=== PATIENT | female | born 1995 | race American Indian/Alaskan Native ===

== ENCOUNTER 2017-03-15 15:50 | Inpatient (IN) | payer SELFPAY ==
[2017-03-15 17:03] LABS: Hematocrit 37.7 % (30.3-42.9); Hemoglobin 12.6 gm/dl (10.1-14.3); Mean Corpuscular HGB Conc 33 % (30-34); Mean Corpuscular Hemoglobin 29 pg (28-32); Mean Corpuscular Volume 88 fl (79-97); Platelet Count 200 K/mm3 (140-440); Red Blood Count 4.28 M/mm3 (3.65-5.03); Red Cell Distribution Width 13.6 % (13.2-15.2); White Blood Count 12.5 K/mm3 (4.5-11.0)
[2017-03-15 17:17] LABS: INR 0.95 (0.87-1.13)
[2017-03-15 17:20] LABS: Anion Gap 22 mmol/L; BUN/Creatinine Ratio 22.85; Blood Urea Nitrogen 16 mg/dL (7-17); Calcium 9.6 mg/dL (8.4-10.2); Carbon Dioxide 22 mmol/L (22-30); Glucose 76 mg/dL (65-100); Potassium 3.9 mmol/L (3.6-5.0); Sodium 135 mmol/L (137-145)
--- NOTE | 2017-03-15 18:41 | Cat Scan Report ---
FINAL REPORT EXAM: CT HEAD/BRAIN WO CON HISTORY: Syncope TECHNIQUE: CT was performed from the foramen magnum through the vertex in the axial plane without the use of intravenous contrast. PRIORS: None. FINDINGS: The go/white matter attenuation pattern is normal. There is no mass lesion or mass effect. There are no abnormal extra-axial fluid collections. There is no evidence of acute intracranial hemorrhage or infarct. The ventricles are of normal size and configuration. The skull and orbits are unremarkable. The visualized paranasal sinuses are clear. IMPRESSION: Normal CT of the head.
[2017-03-15] MEDS ORDERED: TYLENOL PO ONE (18:58)
[2017-03-15] MEDS ORDERED: TYLENOL ONE (19:03)
[2017-03-15] MEDS ORDERED: NACL 0.9% 1000 ML 1,000 ML IV ONE (22:41)
--- NOTE | 2017-03-15 23:06 | Emergency Department Report ---
<COLLIN GUZMAN - Last Filed: 03/15/17 23:56> ED Dizziness HPI - General Chief Complaint: Syncope Stated Complaint: SYNCOPE/SEZIURE AT MALL Time Seen by Provider: 03/15/17 22:38 - Related Data Previous Rx's Medication Instructions Recorded Last Taken Type Loratadine [Claritin] 10 mg PO DAILY #30 tablet 03/23/14 Unknown Rx predniSONE [Deltasone] 40 mg PO QDAY #10 tab 03/23/14 Unknown Rx Allergies Allergy/AdvReac Type Severity Reaction Status Date / Time No Known Allergies Allergy Verified 03/15/17 19:03 ED Review of Systems ROS: Stated complaint: SYNCOPE/SEZIURE AT MALL Other details as noted in HPI ED Past Medical Hx - Medications Home Medications: Home Medications Medication Instructions Recorded Confirmed Last Taken Type Loratadine [Claritin] 10 mg PO DAILY #30 tablet 03/23/14 Unknown Rx predniSONE [Deltasone] 40 mg PO QDAY #10 tab 03/23/14 Unknown Rx ED Course Vital Signs 03/15/17 03/15/17 03/15/17 16:02 19:01 21:03 Temperature 98.2 F Pulse Rate 92 H 66 Respiratory 16 16 18 Rate Blood Pressure 107/80 Blood Pressure 124/76 [Right] O2 Sat by Pulse 100 100 Oximetry - Consultations Consultation #1: 03/15/17 23:[address] 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 Recommends admission for observation. We'll consult ED Medical Decision Making - Lab Data Result diagrams: 03/15/17 16:18 03/15/17 16:18 Critical care attestation.: If time is entered above; I have spent that time in minutes in the direct care of this critically ill patient, excluding procedure time. ED Disposition Clinical Impression: Syncope, near, Wenckebach block, Marijuana abuse Syncope Qualifiers: Syncope type: unspecified Qualified Code(s): R55 - Syncope and collapse Disposition: -09 OP ADMIT IP TO THIS HOSP Is pt being admited?: Yes Condition: Good Time of Disposition: 23:57 (Dr boland/hosp) <PAWEL DICKERSON - Last Filed: 03/16/17 00:12> ED Dizziness HPI - General Source: patient Mode of arrival: Ambulatory Limitations: No Limitations - History of Present Illness Initial Comments: pt endorses smoking marijuana last night did not eat anything today and remembers being in line at food court in mall and got dizziness and fell to floor impacting forehead, pt advises "my uncle was standing over me hold pressure to my head until the ambulance came. pt not sure if she experienced syncopal episode or not, as "They say I passed out," pt denies dizziness no lightheadedness no n/v no cp no sob pt is a/o x 3 ambulatory gait steady at this time, complaint of left forehead laceration, bleeding controlled MD Complaint: dizziness, other (syncope) Onset/Timin -: hour(s) Timing: sudden onset Description: lightheadedness History of Same: No History of Trauma: No Severity: moderate Improves With: rehydration, rest Worsens With: nothing Associated Symptoms: syncope. denies: ataxia, chest pain, confusion, cough, diaphoresis, loss of appetite, malaise, rash, seizure, shortness of breath, weakness ED Review of Systems Constitutional: denies: chills, fever Eyes: denies: eye pain, eye discharge, vision change ENT: denies: ear pain, throat pain Respiratory: denies: cough, shortness of breath, wheezing Cardiovascular: denies: chest pain, palpitations, dyspnea on exertion, edema, paroxysmal nocturnal dyspnea Endocrine: no symptoms reported Gastrointestinal: denies: abdominal pain, nausea, diarrhea Genitourinary: denies: urgency, dysuria, discharge Musculoskeletal: denies: back pain, joint swelling, arthralgia Skin: denies: rash, lesions Neurological: denies: headache, weakness, numbness, paresthesias, confusion, abnormal gait, vertigo Psychiatric: denies: anxiety, depression Hematological/Lymphatic: denies: easy bleeding, easy bruising ED Past Medical Hx - Past Medical History Previous Medical History?: No - Surgical History Past Surgical History?: No - Social History Smoking Status: Never Smoker Substance Use Type: Marijuana ED Physical Exam - General Limitations: No Limitations General appearance: alert, in no apparent distress - Head Head exam: Present: normocephalic, other (left eyebrow laceration less than 1 cm no bleeding minimal swelling no deformity no crepitus no stepoff ) - Eye Eye exam: Present: normal appearance, PERRL, EOMI Pupils: Present: normal accommodation - ENT ENT exam: Present: mucous membranes moist - Neck Neck exam: Present: normal inspection, full ROM. Absent: lymphadenopathy, thyromegaly - Respiratory Respiratory exam: Present: normal lung sounds bilaterally. Absent: respiratory distress, wheezes, stridor - Cardiovascular Cardiovascular Exam: Present: regular rate, normal heart sounds. Absent: systolic murmur, diastolic murmur, rubs, gallop - GI/Abdominal GI/Abdominal exam: Present: soft, normal bowel sounds - Rectal Rectal exam: Present: deferred - Extremities Exam Extremities exam: Present: normal inspection, full ROM, normal capillary refill. Absent: tenderness, pedal edema, joint swelling, calf tenderness - Back Exam Back exam: Present: normal inspection, full ROM. Absent: tenderness, CVA tenderness (R), CVA tenderness (L), muscle spasm, paraspinal tenderness, vertebral tenderness, rash noted - Neurological Exam Neurological exam: Present: alert, oriented X3, CN II-XII intact, normal gait, reflexes normal - Expanded Neurological Exam Expanded Patient oriented to: Present: person, place, time Speech: Present: fluid speech Cranial nerves: EOM's Intact: Normal, Gag Reflex: Normal, Tongue Deviation: Normal, Nystagmus: Normal, Facial Sensation: Normal Cerebellar function: Finger to Nose: Normal, Heel to Gamez: Normal, Romberg: Normal Upper motor neuron: Doe Neglect: Normal, Pronator Drift: Normal, Babinski Sign : Normal, Sensory Extinction: Normal Sensory exam: Upper Extremity Light Touch: Normal, Upper Extremity Pin Prick: Normal, Upper Extremity Temperature: Normal, UE 2 Point Discrimination: Normal, Lower Extremity Light Touch: Normal, Lower Extremity Pin Prick: Normal, Lower Extremity Temperature: Normal, LE 2 Point Discrimination: Normal Motor strength exam: RUE: 5, LUE: 5, RLE: 5, LLE: 5 DTR: bicep (R): 2+, bicep (L): 2+, tricep (R): 2+, tricep (L): 2+, knee (R): 2+ , knee (L): 2+, ankle (R): 2+, ankle (L): 2+ Best Eye Response ([place]): (4) open spontaneously Best Motor Response ([place]): (6) obeys commands Best Verbal Response ([place]): (5) oriented Yoon Total: 15 - Psychiatric Psychiatric exam: Present: normal affect, normal mood - Skin Skin exam: Present: warm, dry, intact, normal color. Absent: rash - Laceration /Wound Repair Left Face Wound Location: face (left eyebrow) Wound Length (cm): 1 Wound's Depth, Shape: linear Wound Explored: clean Irrigated w/ Saline (ccs): 30 Betadine Prep?: Yes Anesthesia: Lidocaine w/ Epi Volume Anesthetic (ccs): 1 Wound Debrided: minimal Wound Repaired With: sutures Suture Size/Type: 6:0, proline Number of Sutures: 4 Layer Closure?: No Sterile Dressing Applied?: Yes Progress: left eyebrow laceration less than 1 cm bleeding control anesthesia wih 1% lidocaine with epi, 2cc, wound cleaned with betadine solution, irrigated wtih 30 sterile ns, closed with 6/0 prolyne x 4 sutures pt given wound care instructions pt verbalized understanding of same, all bleeding controlled ED Medical Decision Making - Lab Data Result diagrams: 03/15/17 16:18 03/15/17 16:18 Laboratory Tests 03/15/17 03/15/17 03/15/17 16:18 16:18 16:18 WBC RBC Hgb Hct MCV MCH MCHC RDW Plt Count PT 13.2 INR 0.95 Sodium 135 L Potassium 3.9 Chloride 95.0 L Carbon Dioxide 22 Anion Gap 22 BUN 16 Creatinine 0.7 Estimated GFR > 60 BUN/Creatinine Ratio 22.85 Glucose 76 Calcium 9.6 Magnesium 2.00 HCG, Qual Negative 03/15/17 16:18 WBC 12.5 H RBC 4.28 Hgb 12.6 Hct 37.7 MCV 88 MCH 29 MCHC 33 RDW 13.6 Plt Count 200 PT INR Sodium Potassium Chloride Carbon Dioxide Anion Gap BUN Creatinine Estimated GFR BUN/Creatinine Ratio Glucose Calcium Magnesium HCG, Qual - EKG Data -: EKG Interpreted by Me (Dr. Guzman, Second degree AV block manjit Reyes) Rate: normal (manjit ) - EKG Data When compared to previous EKG there are: previous EKG unavailable, other (no previous ekg available , ) - Radiology Data Radiology results: image reviewed - Medical Decision Making pt endorses smoking marijuana last night did not eat anything today and remembers being inline at food court in mall and got dizziness and fell to floor impacting forehead, pt advises "my uncle was standing over me hold pressure to my head until the ambulance came. pt unsure of syncope or not as she remembers impacting floor and uncle hold pressure until ems arrived, "They say I passed out," pt denies dizziness no lightheadedness no n/v no cp no sob pt is a/o x 3 ambulatory gait steady at this time, complaint of left forehead laceration, bleeding controlled , wound closed see procedure note, exam at this time patient is a/o x 3 appears nontoxic pt tolerating po intake eat dinner at bedside without n/v pt laceration closed as noted in procedure not there is minimal swelling ent: normal tms clear no erythema no blood nose: patent no bleed no obstruction, pharynx: no erythema no exudate no lesions airway is patent, there are no other or distracting injury , neuro intact CN: II-XII grossly intact, lungs clear bilat no wheezing, cv: s1 and s2 no MRG, abd soft nontender , no back pain, no , no dizziness lightheadedness no cp no sob, ct head: normal , labs noted however pt refuses IVFs, and EKG at this time. 2315: pt now agree with EKG : same completed with note 2nd degree AV Block Manjit I, this new finding for this patient, ED attending consulted recommendation admit to hospitalist, cardiology consult, same completed at this time, Cardiac enzymes and cxr ordered, pt care hand off to hospitalist completed. mother and patient agree with treatment plan, Adm to hospitalist, dx : syncope , ekg changes, abnormal ekg. ED Disposition Is pt being admited?: Yes Does the pt Need Aspirin: No Time of Disposition: 00:12
[2017-03-15 23:59] LABS: Urine Drugs of Abuse Note Disclamer
[2017-03-16 00:26] LABS: Bilirubin,Urine NEG (Negative); Blood,Urine NEG (Negative); Ketones,Urine NEG (Negative); Leukocyte Esterase,Urine NEG (Negative); Mucus,Urine FEW /HPF; Nitrite,Urine NEG (Negative); Protein,Urine <15 mg/dL mg/dL (Negative); Urobilinogen,Urine < 2.0 mg/dL (<2.0)
[2017-03-16] MEDS ORDERED: NACL 0.9% 1000 ML 1,000 ML ONE (00:58)
--- NOTE | 2017-03-16 01:16 | XRay Report ---
FINAL REPORT PROCEDURE: XR CHEST ROUTINE 2V TECHNIQUE: PA and lateral chest radiographs were obtained. CPT 50921 HISTORY: syncope COMPARISON: No prior studies are available for comparison. FINDINGS: Heart: Normal. Mediastinum/Vessels: Normal. Lungs/Pleural space: Normal. Bony thorax: No acute osseous abnormality. Other: IMPRESSION: Normal examination.
[2017-03-16] MEDS ORDERED: MILK OF MAGNESIA PO PRN (02:32)
[2017-03-16] MEDS ORDERED: PERCOCET 5/325 PO PRN (02:32)
[2017-03-16] MEDS ORDERED: TYLENOL PO PRN (02:32)
[2017-03-16] MEDS ORDERED: AMBIEN PO PRN (02:32)
[2017-03-16] MEDS ORDERED: ZOFRAN IV PRN (02:32)
[2017-03-16] MEDS ORDERED: DILAUDID IV PRN (02:32)
[2017-03-16] MEDS ORDERED: DULCOLAX PR PRN (02:32)
--- NOTE | 2017-03-16 02:32 | History and Physical Report ---
History of Present Illness Date of examination: 03/16/17 Date of admission: 03/16/17 Chief complaint: Passed out at mall. History of present illness: History of Present Illness pt endorses smoking marijuana last night did not eat anything today and remembers being in line at food court in mall and got dizziness and fell to floor impacting forehead, pt advises "my uncle was standing over me hold pressure to my head until the ambulance came. pt not sure if she experienced syncopal episode or not, as "They say I passed out," pt denies dizziness no lightheadedness no n/v no cp no sob pt is a/o x 3 ambulatory gait steady at this time, complaint of left forehead laceration, bleeding controlled MD Complaint: dizziness, other (syncope) Onset/Timin -: hour(s) Timing: sudden onset Description: lightheadedness History of Same: No History of Trauma: No Severity: moderate Improves With: rehydration, rest Worsens With: nothing Associated Symptoms: syncope. denies: ataxia, chest pain, confusion, cough, diaphoresis, loss of appetite, malaise, rash, seizure, shortness of breath, weakness - Past Medical History Previous Medical History?: No - Surgical History Past Surgical History?: No - Social History Smoking Status: Never Smoker Substance Use Type: Marijuana Fam Hx No Htn or diabees Review of Systems Constitutional: denies: chills, fever Eyes: denies: eye pain, eye discharge, vision change ENT: denies: ear pain, throat pain Respiratory: denies: cough, shortness of breath, wheezing Cardiovascular: denies: chest pain, palpitations, dyspnea on exertion, edema, paroxysmal nocturnal dyspnea Endocrine: no symptoms reported Gastrointestinal: denies: abdominal pain, nausea, diarrhea Genitourinary: denies: urgency, dysuria, discharge Musculoskeletal: denies: back pain, joint swelling, arthralgia Skin: denies: rash, lesions Neurological: denies: headache, weakness, numbness, paresthesias, confusion, abnormal gait, vertigo Psychiatric: denies: anxiety, depression Hematological/Lymphatic: denies: easy bleeding, easy bruising Medications and Allergies Allergies Allergy/AdvReac Type Severity Reaction Status Date / Time No Known Allergies Allergy Verified 03/15/17 19:03 Home Medications Medication Instructions Recorded Confirmed Last Taken Type Loratadine [Claritin] 10 mg PO DAILY #30 tablet 03/23/14 Unknown Rx predniSONE [Deltasone] 40 mg PO QDAY #10 tab 03/23/14 Unknown Rx Exam - Constitutional Vitals: Temp Pulse Resp BP Pulse Ox 98.2 F 69 19 96/51 99 03/15/17 16:02 03/16/17 01:45 03/16/17 01:45 03/16/17 01:45 03/16/17 01:45 General appearance: Present: no acute distress, well-nourished - EENT Eyes: Present: PERRL ENT: hearing intact, clear oral mucosa - Neck Neck: Present: supple, normal ROM - Respiratory Respiratory effort: normal Respiratory: bilateral: CTA - Cardiovascular Heart rate: 70 Rhythm: regular Heart Sounds: Present: S1 & S2. Absent: rub, click - Extremities Extremities: no ischemia, pulses intact, pulses symmetrical, No edema Peripheral Pulses: within normal limits - Abdominal General gastrointestinal: Present: soft, non-tender, non-distended, normal bowel sounds Female genitourinary: Present: normal - Integumentary Integumentary: Present: clear, warm, dry - Musculoskeletal Musculoskeletal: gait normal, strength equal bilaterally - Psychiatric Psychiatric: appropriate mood/affect, intact judgment & insight - Neurologic Neurologic: CNII-XII intact, moves all extremities - Allied Health Allied health notes reviewed: nursing, case management Results - Labs CBC & Chem 7: 03/15/17 16:18 03/15/17 16:18 Labs: Laboratory Last Values WBC 12.5 K/mm3 (4.5-11.0) H 03/15/17 16:18 RBC 4.28 M/mm3 (3.65-5.03) 03/15/17 16:18 Hgb 12.6 gm/dl (10.1-14.3) 03/15/17 16:18 Hct 37.7 % (30.3-42.9) 03/15/17 16:18 MCV 88 fl (79-97) 03/15/17 16:18 MCH 29 pg (28-32) 03/15/17 16:18 MCHC 33 % (30-34) 03/15/17 16:18 RDW 13.6 % (13.2-15.2) 03/15/17 16:18 Plt Count 200 K/mm3 (140-440) 03/15/17 16:18 PT 13.2 Sec. (12.2-14.9) 03/15/17 16:18 INR 0.95 (0.87-1.13) 03/15/17 16:18 Sodium 135 mmol/L (137-145) L 03/15/17 16:18 Potassium 3.9 mmol/L (3.6-5.0) 03/15/17 16:18 Chloride 95.0 mmol/L (98-107) L 03/15/17 16:18 Carbon Dioxide 22 mmol/L (22-30) 03/15/17 16:18 Anion Gap 22 mmol/L 03/15/17 16:18 BUN 16 mg/dL (7-17) 03/15/17 16:18 Creatinine 0.7 mg/dL (0.7-1.2) 03/15/17 16:18 Estimated GFR > 60 ml/min 03/15/17 16:18 BUN/Creatinine Ratio 22.85 % 03/15/17 16:18 Glucose 76 mg/dL (65-100) 03/15/17 16:18 Calcium 9.6 mg/dL (8.4-10.2) 03/15/17 16:18 Magnesium 2.00 mg/dL (1.7-2.3) 03/15/17 16:18 Troponin T < 0.010 ng/mL (0.00-0.029) 03/15/17 23:58 HCG, Qual Negative (Negative) 03/15/17 16:18 Urine Color Yellow (Yellow) 03/15/17 23:39 Urine Turbidity Clear (Clear) 03/15/17 23:39 Urine pH 5.0 (5.0-7.0) 03/15/17 23:39 Ur Specific [place] 1.021 (1.003-1.030) 03/15/17 23:39 Urine Protein <15 mg/dl mg/dL (Negative) 03/15/17 23:39 Urine Glucose (UA) Neg mg/dL (Negative) 03/15/17 23:39 Urine Ketones Neg mg/dL (Negative) 03/15/17 23:39 Urine Blood Neg (Negative) 03/15/17 23:39 Urine Nitrite Neg (Negative) 03/15/17 23:39 Urine Bilirubin Neg (Negative) 03/15/17 23:39 Urine Urobilinogen < 2.0 mg/dL (<2.0) 03/15/17 23:39 Ur Leukocyte Esterase Neg (Negative) 03/15/17 23:39 Urine WBC (Auto) 2.0 /HPF (0.0-6.0) 03/15/17 23:39 Urine RBC (Auto) 2.0 /HPF (0.0-6.0) 03/15/17 23:39 U Epithel Cells (Auto) 13.0 /HPF (0-13.0) 03/15/17 23:39 Urine Mucus Few /HPF 03/15/17 23:39 Urine Opiates Screen Presumptive negative 03/15/17 23:39 Urine Methadone Screen Presumptive negative 03/15/17 23:39 Ur Barbiturates Screen Presumptive negative 03/15/17 23:39 Ur Phencyclidine Scrn Presumptive negative 03/15/17 23:39 Ur Amphetamines Screen Presumptive negative 03/15/17 23:39 U Benzodiazepines Scrn Presumptive negative 03/15/17 23:39 Urine Cocaine Screen Presumptive negative 03/15/17 23:39 U Marijuana (THC) Screen Presumptive positive 03/15/17 23:39 Drugs of Abuse Note Disclamer 03/15/17 23:39 - Imaging and Cardiology EKG: report reviewed (Wenkebach's phenomenon) Chest x-ray: report reviewed (NAF) Assessment and Plan Advance Directives: Yes (Full code) VTE prophylaxis?: Chemical Plan of care discussed with patient/family: Yes - Patient Problems (1) Syncope Current Visit: Yes Status: Acute Qualifiers: Syncope type: unspecified Encounter type: E Qualified Code(s): R55 - Syncope and collapse Plan to address problem: Syncope w/u CDS probably vaso vagal (2) Wenckebach block Current Visit: Yes Status: Acute Plan to address problem: Defer to cardiology (3) Marijuana abuse Current Visit: Yes Status: Chronic Plan to address problem: patient counselled (4) DVT prophylaxis Current Visit: Yes Status: Acute Plan to address problem: On Lovenox 40 mg sq qd
[2017-03-16 03:46] LABS: Creatine Kinase 507 units/L (30-135); Creatine Kinase MB 2.5 ng/mL (0.0-4.0)
[2017-03-16] MEDS: PEPCID IV SCH ×3 (03:56→22:47)
--- NOTE | 2017-03-16 07:20 | Consultation ---
History of Present Illness Consult date: 03/16/17 Consult reason: syncope History of present illness: 20 yo female passed out while standing [place] line at [place] court [place] striking her head and sustaining a small laceration on the left eyebrow which has been managed in the ed. she admits to have been smoking marijuana and not having had much to eat. she became dizzy and lost consciousnes. There was no associated cp,sob,palp,nausea, or sensation of warmth. cxr and head ct unremarkable. ecg reveals sinus rhythm mobitz 1 av block and intermittent junctional rhythm. Medications and Allergies Allergies Allergy/AdvReac Type Severity Reaction Status Date / Time No Known Allergies Allergy Verified 03/15/17 19:03 Home Medications Medication Instructions Recorded Confirmed Last Taken Type Loratadine [Claritin] 10 mg PO DAILY #30 tablet 03/23/14 Unknown Rx predniSONE [Deltasone] 40 mg PO QDAY #10 tab 03/23/14 Unknown Rx Active Meds: Active Medications Acetaminophen (Tylenol) 650 mg PO Q4H PRN PRN Reason: Pain MILD(1-3)/Fever >100.5/[place] Bisacodyl (Dulcolax) 10 mg [place] QDAY PRN PRN Reason: Constipation unrelieved by MOM Famotidine (Pepcid) 20 mg IV BID MAXI Last Admin: 03/16/17 03:56 Dose: 20 mg Hydromorphone HCl (Dilaudid) 0.5 mg IV Q3H PRN PRN Reason: Pain , Severe (7-10) Dextrose/Sodium Chloride (D5ns) 1,000 mls @ 100 mls/hr IV DIRECT MAXI Loratadine (Claritin) 10 mg PO DAILY MAXI Magnesium Hydroxide (Milk Of Magnesia) 30 ml PO Q4H PRN PRN Reason: Constipation Ondansetron HCl (Zofran) 4 mg IV Q8H PRN PRN Reason: N/V unrelieved by Reglan Oxycodone/Acetaminophen (Percocet 5/325) 1 tab PO Q6H PRN PRN Reason: Pain, Moderate (4-6) Prednisone (Deltasone) 40 mg PO QDAY MAXI Zolpidem Tartrate (Ambien) 5 mg PO QHS PRN PRN Reason: Insomnia Review of Systems Constitutional: no fever, no chills Eyes: bilateral: blurred vision (without) Ears, nose, mouth and throat: no epistaxis Cardiovascular: no chest pain, no palpitations, no shortness of breath, no dyspnea on exertion Respiratory: no cough, no hemoptysis Gastrointestinal: no abdominal pain, no nausea, no vomiting Genitourinary Female: no flank pain Musculoskeletal: no hot joints Integumentary: no rash Neurological: no paralysis, no seizures Psychiatric: no anxiety Endocrine: no cold intolerance, no heat intolerance Hematologic/Lymphatic: no easy bruising Allergic/Immunologic: no urticaria Physical Examination Vital Signs Temp Pulse Resp BP Pulse Ox 98.2 F 92 H 16 107/80 100 03/15/17 16:02 03/15/17 16:02 03/15/17 16:02 03/15/17 16:02 03/15/17 16:02 General appearance: no acute distress HEENT: Positive: PERRL, Normocephaly, Other (sutured laceration left eyebrow) Neck: Positive: neck supple, Carotid Upstroke. Negative: JVD/HJR, Bruit ( carotids 2+ bilat) Cardiac: Positive: Reg Rate and Rhythm. Negative: S3, S4, Audible Murmur Lungs: Positive: clear to auscultation Neuro: Positive: Grossly Intact Abdomen: Positive: Soft. Negative: Tender Skin: Positive: Clear Musculoskeletal: Normal Range of Motion Extremities: Present: normal, Other (periph pulses sym normal). Absent: edema Results 03/15/17 16:18 03/15/17 16:18 Cardiac Enzymes 03/16/17 Range/Units 03:00 CK-MB (CK-2) 2.5 (0.0-4.0) ng/mL Assessment and Plan syncope, likely vagal in origin ecg: sinus with mobtiz type 1 av block with intermittent junctional rhythm tele overnight predominately nsr rec: tele, outpatient holter, vasc u/s pending rec echocardiogram as well
[2017-03-16] MEDS: D5NS 1,000 ML IV SCH ×2 (09:22→23:00)
[2017-03-16] MEDS: CLARITIN PO SCH (09:22)
[2017-03-16] MEDS: DELTASONE PO SCH (09:22)
[2017-03-16 09:39] LABS: Creatine Kinase MB 2.5 ng/mL (0.0-4.0)
[2017-03-16 09:40] LABS: Creatine Kinase 450 units/L (30-135)
[2017-03-16 22:03] LABS: Creatine Kinase MB 1.9 ng/mL (0.0-4.0)
[2017-03-16 22:04] LABS: Creatine Kinase 424 units/L (30-135)
[2017-03-17 05:22] LABS: Alanine Aminotransferase 8 units/L (7-56); Albumin 4.1 g/dL (3.9-5); Albumin/Globulin Ratio 1.4 %; Alkaline Phosphatase 72 units/L (35-129); Anion Gap 16 mmol/L; Blood Urea Nitrogen 10 mg/dL (7-17); Carbon Dioxide 24 mmol/L (22-30); Chloride 104.8 mmol/L (98-107); Glucose 107 mg/dL (65-100); Potassium 4.1 mmol/L (3.6-5.0); Sodium 141 mmol/L (137-145); Total Protein 7.1 g/dL (6.3-8.2)
[2017-03-17 05:23] LABS: Basophils % (Auto) 0.1 % (0.0-1.8); Eosinophils % (Auto) 0.2 % (0.0-4.3); Hematocrit 34.6 % (30.3-42.9); Hemoglobin 11.5 gm/dl (10.1-14.3); Mean Corpuscular HGB Conc 33 % (30-34); Mean Corpuscular Hemoglobin 29 pg (28-32); Mean Corpuscular Volume 88 fl (79-97); Platelet Count 191 K/mm3 (140-440); Red Blood Count 3.95 M/mm3 (3.65-5.03); Red Cell Distribution Width 14.1 % (13.2-15.2); White Blood Count 11.5 K/mm3 (4.5-11.0)
--- NOTE | 2017-03-17 08:45 | Event Note ---
Date: 03/17/17 no new cardiac compliants. no events overnight reported chest clear cor rrr abd soft ext w/o edema echo unremarkable carotid u/s results pending tele: no sig rhythm or conduction abn cardiac status appears stable rec extended outpt hoter monitor and possibly ep consult for further rec please have pt make appt for f/u in our office 10 days to 2wk after discharge.
--- NOTE | 2017-03-17 09:33 | Discharge Summary ---
Providers - Providers Date of Admission: 03/16/17 02:32 Date of discharge: 03/17/17 Attending physician: IRENE FLORES CONSULTS: Cardiology Primary care physician: ARMAND FORMAN MD Hospitalization Reason for admission: syncope Condition: Stable Pertinent studies: CT head Chest x-ray Echocardiogram Carotid Doppler Hospital course: Patient is a 21 years old female who presented for a syncopal episode after not eating for a long period of time and smoking marijuana; she sustained a laceration of her forehead that was treated in ER; CT head with no acute abnormalities. Cardiology was consulted and she underwent further testing; monitored on telemetry and no arrhythmias noted, echocardiogram was unremarkable. Per cardiology she will repeat discharge weight outpatient follow -up for holter monitor and possible EP study. Counseled regarding importance of quitting drug use. Discharge diagnoses: 1. Syncope, likely vasovagal 2. Laceration forehead 3. Drug use 4.. Mild rhabdomyolysis with normal renal function 5. Leukocytosis due to corticosteroid use Disposition: DC-01 TO HOME OR SELFCARE Time spent for discharge: 35 min Core Measure Documentation - Palliative Care Palliative Care/ Comfort Measures: Not Applicable - Core Measures Any of the following diagnoses?: none Exam - Physical Exam Narrative exam: Seen and examined: - Constitutional Vitals: Temp Pulse Resp BP Pulse Ox 98.6 F 50 L 12 86/43 100 03/17/17 05:48 03/17/17 05:48 03/17/17 05:48 03/17/17 05:48 03/17/17 05:48 General appearance: Present: no acute distress, well-nourished - EENT Eyes: Present: PERRL, EOM intact - Neck Neck: Present: supple, normal ROM. Absent: masses or JVD - Respiratory Respiratory effort: normal Respiratory: bilateral: CTA, negative: rhonchi, wheezing - Cardiovascular Rhythm: regular Heart Sounds: Present: S1 & S2. Absent: systolic murmur - Extremities Extremities: no ischemia - Abdominal General gastrointestinal: Present: soft, non-tender, non-distended, normal bowel sounds - Integumentary Integumentary: Present: warm, dry. Absent: jaundice, rash - Musculoskeletal Musculoskeletal: strength equal bilaterally - Neurologic Neurologic: CNII-XII intact, no focal deficits Plan Activity: advance as tolerated Diet: regular Follow up with: PRIMARY CAREMD [Primary Care Provider] - 7 Days MARY ANNE DONOVAN MD [Staff Physician] - 10 Days
[2017-03-17 09:57] VITALS: BP 93/42
[2017-03-17] MEDS: PEPCID IV SCH (10:08)
[2017-03-17] MEDS: DELTASONE PO SCH (10:10)
[2017-03-17] MEDS: CLARITIN PO SCH (10:10)
== END 2017-03-17 11:00 | disposition home or self-care (01) | DRG 312 ==
LOC: ED 15:50 → 4A 03-16 02:32
PROVIDERS: ADMIT Internal Medicine; ATTEND Internal Medicine
DX: R55 Syncope and collapse (principal); M62.82 Rhabdomyolysis; I44.1 Atrioventricular block, second degree; F12.10 Cannabis abuse, uncomplicated; S01.81XA Laceration without foreign body of other part of head, initial encounter
CPT/HCPCS: 36415; 70450; 71020; 80048; 80053; 80307; 81001; 82550; 82553; 83735; 84484; 84703; 85025; 85027; 85610; 93005; 93010; 93306; 93880; 96360; J7030; J7042; J7512

== ENCOUNTER 2017-03-24 12:55 | Emergency (ER) | payer SELFPAY ==
[2017-03-24 13:08] VITALS: BP 106/67
--- NOTE | 2017-03-24 15:54 | Emergency Department Report ---
Suture/Staple Removal - HPI Chief Complaint: Laceration/Recheck/Suture Stated Complaint: SUTURE REMOVAL Time Seen by Provider: 03/24/17 15:43 When Sutures or Anand Placed: 8-10 Days Ago Wound Location: L eye brow ED Review of Systems ROS: Stated complaint: SUTURE REMOVAL Other details as noted in HPI Comment: All other systems reviewed and negative Eyes: denies: eye pain, vision change Cardiovascular: denies: syncope Skin: denies: change in color Neurological: denies: headache, weakness, vertigo ED Past Medical Hx - Past Medical History Previous Medical History?: No Hx Congestive Heart Failure: No Hx Diabetes: No Hx Asthma: No Hx COPD: No - Surgical History Past Surgical History?: Yes Additional Surgical History: port remove - Social History Smoking Status: Never Smoker Substance Use Type: None - Medications Home Medications: Home Medications Medication Instructions Recorded Confirmed Last Taken Type Loratadine [Claritin] 10 mg PO DAILY #30 tablet 03/23/14 03/17/17 Rx predniSONE [Deltasone] 40 mg PO QDAY #10 tab 03/23/14 03/17/17 09:00 Rx Suture Removal Exam - Exam General: Vital signs noted. No distress. Alert and acting appropriately. Wound: No Pathologic Erythema, No Tenderness, No Drainage, No Pus, No Wound Dehiscence Other Systems: All other systems reviewed and are unremarkable. 4 sutures noted to L eyebrow ED Course Vital Signs 03/24/17 13:06 Temperature 98.4 F Pulse Rate 94 H Respiratory 16 Rate Blood Pressure 106/67 O2 Sat by Pulse 99 Oximetry - Reevaluation(s) Reevaluation #1: 03/24/17 15:51 4 sutures removed from L eye brow. wound remains intact, no complications. pt tolerated the procedure well. - Pulse Oximetry Interpretation Digit-Finger Initial Pulse Oximetry Readin Actions Taken: none ED Recheck MDM - Differential Diagnosis Wound Recheck, Suture/Staple Removal Critical Care Time: No Critical care attestation.: If time is entered above; I have spent that time in minutes in the direct care of this critically ill patient, excluding procedure time. ED Disposition Clinical Impression: Visit for suture removal Disposition: DC-01 TO HOME OR SELFCARE Is pt being admited?: No Does the pt Need Aspirin: No Condition: Stable Instructions: Suture Removal (ED) Referrals: PRIMARY CARE, [Primary Care Provider] - 3-5 Days SRINIVASA FERNANDEZ MD [Staff Physician] - 3-5 Days Time of Disposition: 15:54
== END 2017-03-24 16:08 | disposition home or self-care (01) ==
LOC: ED 12:55
DX: Z48.02 Encounter for removal of sutures (principal)
CPT/HCPCS: 99281

== ENCOUNTER 2017-09-23 15:47 | Emergency (ER) | payer SELFPAY ==
[2017-09-23 16:16] VITALS: BP 112/68
[2017-09-23 17:26] LABS: HCG Qualitative,Urine Negative (Negative)
[2017-09-23 17:32] LABS: Bilirubin,Urine NEG (Negative); Blood,Urine MOD (Negative); Color,Urine Yellow (Yellow); Mucus,Urine 3+ /HPF
[2017-09-23] MEDS ORDERED: ROCEPHIN IM ONE (20:31)
[2017-09-23] MEDS ORDERED: FLAGYL PO ONE (20:31)
[2017-09-23] MEDS ORDERED: MOTRIN PO ONE (20:31)
[2017-09-23] MEDS ORDERED: XYLOCAINE 1% MPF 5 mL INFILTRATI ONE (20:31)
[2017-09-23] MEDS ORDERED: ZITHROMAX PO ONE (20:31)
--- NOTE | 2017-09-23 20:38 | Emergency Department Report ---
ED Female HPI - General Chief complaint: Urogenital-Female Stated complaint: GENERAL SICK/PAIN Time Seen by Provider: 09/23/17 20:26 Source: patient Mode of arrival: Ambulatory Limitations: No Limitations - History of Present Illness Initial comments: This is a 22-year-old female nontoxic, well nourished in appearance, no acute signs of distress presents to the ED with c/o of vaginal discharge x2 days. Patient stated last week she had a temperature consensual intercourse. Patient denies any vaginal bleeding, dysuria, polyuria, hematuria, fever, chills, nausea , vomiting, chest pain, shortness of breath. She denies any allergies or significant past history. MD Complaint: vaginal discharge -: days(s) (2) Severity scale (0 -10): 0 Improves with: none Worsens with: none Are you Now?: No Associated Symptoms: vaginal discharge. denies: vaginal bleeding, abdominal pain, nausea/vomiting, fever/chills, headaches, loss of appetite, dysuria, hematuria, rash, seizure, shortness of breath, syncope, weakness - Related Data Previous Rx's Medication Instructions Recorded Last Taken Type Loratadine [Claritin] 10 mg PO DAILY #30 tablet 03/23/14 03/17/17 Rx predniSONE [Deltasone] 40 mg PO QDAY #10 tab 03/23/14 03/17/17 09:00 Rx metroNIDAZOLE [Flagyl] 500 mg PO Q12HR #14 tab 09/23/17 Unknown Rx Allergies Allergy/AdvReac Type Severity Reaction Status Date / Time No Known Allergies Allergy Verified 03/15/17 19:03 ED Review of Systems ROS: Stated complaint: GENERAL SICK/PAIN Other details as noted in HPI Constitutional: denies: chills, fever Eyes: denies: eye pain, eye discharge, vision change ENT: denies: ear pain, throat pain Respiratory: denies: cough, shortness of breath, wheezing Cardiovascular: denies: chest pain, palpitations Endocrine: no symptoms reported Gastrointestinal: denies: abdominal pain, nausea, diarrhea Genitourinary: discharge. denies: urgency, dysuria Musculoskeletal: denies: back pain, joint swelling, arthralgia Skin: denies: rash, lesions Neurological: denies: headache, weakness, paresthesias Psychiatric: denies: anxiety, depression Hematological/Lymphatic: denies: easy bleeding, easy bruising ED Past Medical Hx - Past Medical History Previous Medical History?: No Hx Congestive Heart Failure: No Hx Diabetes: No Hx Asthma: No Hx COPD: No Additional medical history: chin abnormality - Surgical History Past Surgical History?: Yes Additional Surgical History: port remove - Social History Smoking Status: Current Every Day Smoker Substance Use Type: Marijuana - Medications Home Medications: Home Medications Medication Instructions Recorded Confirmed Last Taken Type Loratadine [Claritin] 10 mg PO DAILY #30 tablet 03/23/14 03/17/17 Rx predniSONE [Deltasone] 40 mg PO QDAY #10 tab 03/23/14 03/17/17 09:00 Rx metroNIDAZOLE [Flagyl] 500 mg PO Q12HR #14 tab 09/23/17 Unknown Rx ED Physical Exam - General Limitations: No Limitations General appearance: alert, in no apparent distress - Head Head exam: Present: atraumatic, normocephalic - Eye Eye exam: Present: normal appearance Pupils: Present: normal accommodation - ENT ENT exam: Present: normal exam, mucous membranes moist - Neck Neck exam: Present: normal inspection, full ROM - Respiratory Respiratory exam: Present: normal lung sounds bilaterally. Absent: respiratory distress, wheezes, rales, rhonchi, stridor, chest wall tenderness, accessory muscle use, decreased breath sounds, prolonged expiratory - Cardiovascular Cardiovascular Exam: Present: regular rate, normal rhythm, normal heart sounds. Absent: irregular rhythm, systolic murmur, diastolic murmur, rubs, gallop - GI/Abdominal GI/Abdominal exam: Present: soft, normal bowel sounds. Absent: distended, tenderness - Extremities Exam Extremities exam: Present: normal inspection, full ROM, normal capillary refill - Back Exam Back exam: Present: normal inspection, full ROM - Neurological Exam Neurological exam: Present: alert, oriented X3, normal gait - Psychiatric Psychiatric exam: Present: normal affect, normal mood - Skin Skin exam: Present: warm, dry, intact, normal color. Absent: rash ED Course Vital Signs 09/23/17 16:12 Temperature 98.7 F Pulse Rate 102 H Respiratory 20 Rate Blood Pressure 112/68 O2 Sat by Pulse 99 Oximetry - Reevaluation(s) Reevaluation #1: 09/23/17 20:39 Patient is speaking in full sentences with no signs of distress noted. - Consultations Consultation #1: 09/23/17 20:39 Patient has been consulted with Dr. Angulo about patient history, physical exam, and labs and examined and screened patient and agrees to ED plan of care and discharge plan of care. ED Medical Decision Making - Medical Decision Making This is a 22-year-old female that presents with possible STD. Patient was examined by me and Dr. Angulo. PAtient is stable. As per Dr. Angulo request to prescribe Flagyl for possible BV as well. UA normal. Patient did receive Rocephin and azithromycin empirically for STD as patient stated she wanted to be treated empirically. Patient was instructed not to consume any alcohol while taking Flagyl. Patient was instructed to Follow-up with a primary care doctor in 3-5 days or if symptoms worsen and continue return to emergency room as soon as possible. At time of discharge, the patient does not seem toxic or ill in appearance. No acute signs of distress noted. Patient agrees to discharge treatment plan of care. No further questions noted by the patient. Critical care attestation.: If time is entered above; I have spent that time in minutes in the direct care of this critically ill patient, excluding procedure time. ED Disposition Clinical Impression: Possible exposure to STD Disposition: DC-01 TO HOME OR SELFCARE Is pt being admited?: No Does the pt Need Aspirin: No Condition: Stable Instructions: Metronidazole (By mouth), Safe Sex (ED) Additional Instructions: Follow-up with a primary care doctor in 3-5 days or if symptoms worsen and continue return to emergency room as soon as possible. Do not consume any alcohol while taking antibiotics Prescriptions: metroNIDAZOLE [Flagyl] 500 mg PO Q12HR #14 tab Referrals: ARMAND FORMAN MD [Primary Care Provider] - 3-5 Days PATRICIO ALAN MD [Staff Physician] - 3-5 Days [facility] [Outside] - 3-5 Days [facility] [Outside] - 3-5 Days Forms: Work/School Release Form(ED)
[2017-09-23] MEDS ORDERED: ZOFRAN ODT ONE (21:04)
[2017-09-23] MEDS ORDERED: ZOFRAN ODT PO ONE (21:06)
--- NOTE | 2017-09-23 21:48 | Emergency Department Report ---
Chief Complaint: Urogenital-Female Stated Complaint: GENERAL SICK/PAIN Time Seen by Provider: 09/23/17 20:26 - HPI History of Present Illness: The patient is a 22-year-old female presents for evaluation of vaginal discharge. The patient was pleasant discharge for the past 2 days, associated with cramping abdominal pain. She admits to unprotected sexual intercourse. The patient denies fever, chills, night sweats, diarrhea, blood in the stool, dark tarry stool, dysuria, hematuria, flank pain, inability to pass flatus. - Exam Vital Signs: Vital Signs 09/23/17 09/23/17 16:12 21:35 Temperature 98.7 F Pulse Rate 102 H 74 Respiratory 20 17 Rate Blood Pressure 112/68 O2 Sat by Pulse 99 100 Oximetry MSE screening note: Focused history and physical exam performed. Due to findings the following was ordered: ED Disposition for MSE Clinical Impression: Possible exposure to STD Disposition: DC-01 TO HOME OR SELFCARE Condition: Stable Instructions: Metronidazole (By mouth), Safe Sex (ED) Additional Instructions: Follow-up with a primary care doctor in 3-5 days or if symptoms worsen and continue return to emergency room as soon as possible. Do not consume any alcohol while taking antibiotics Prescriptions: metroNIDAZOLE [Flagyl] 500 mg PO Q12HR #14 tab Referrals: [facility] [Outside] - 3-5 Days [facility] [Outside] - 3-5 Days PRIMARY CARE, [Primary Care Provider] - 3-5 Days PATRICIO ALAN MD [Staff Physician] - 3-5 Days Forms: Work/School Release Form(ED)
== END 2017-09-23 21:35 | disposition home or self-care (01) ==
LOC: ED 15:47
DX: N89.8 Other specified noninflammatory disorders of vagina (principal); F17.200 Nicotine dependence, unspecified, uncomplicated; F12.10 Cannabis abuse, uncomplicated
CPT/HCPCS: 81001; 81025; 96372; 99283; J0696; Q0162

== ENCOUNTER 2018-11-06 04:08 | Emergency (ER) | payer OTHER ==
[2018-11-06 05:42] LABS: Bilirubin,Urine NEG (Negative); Blood,Urine NEG (Negative); Color,Urine Yellow (Yellow); Mucus,Urine FEW /HPF; Protein,Urine <15 mg/dL mg/dL (Negative); Urobilinogen,Urine < 2.0 mg/dL (<2.0)
[2018-11-06 05:55] LABS: Basophils % (Auto) 0.2 % (0.0-1.8); Eosinophils % (Auto) 0.1 % (0.0-4.3); Hematocrit 33.7 % (30.3-42.9); Lymphocytes # (Auto) 1.6 K/mm3 (1.2-5.4); Mean Corpuscular HGB Conc 33 % (30-34); Mean Corpuscular Volume 83 fl (79-97); Monocytes # (Auto) 1.5 K/mm3 (0.0-0.8); Monocytes % (Auto) 8.1 % (0.0-7.3); Platelet Count 260 K/mm3 (140-440); Red Blood Count 4.06 M/mm3 (3.65-5.03); Red Cell Distribution Width 16.6 % (13.2-15.2)
[2018-11-06 05:59] LABS: Alanine Aminotransferase 12 units/L (7-56); Albumin 4.2 g/dL (3.9-5); BUN/Creatinine Ratio 13; Blood Urea Nitrogen 9 mg/dL (7-17); Calcium 9.3 mg/dL (8.4-10.2); Hemolysis Index 4
--- NOTE | 2018-11-06 06:11 | Emergency Department Report ---
ED General Adult HPI - General Chief complaint: Syncope Stated complaint: SYNCOPE/FEVER Time Seen by Provider: 11/06/18 06:04 Source: patient Mode of arrival: Ambulatory Limitations: No Limitations - History of Present Illness Initial comments: Patient is a 23-year-old female that presents to emergency room with sore throat and difficulty swallowing. Patient is also complaining of fever. Patient states that she is feeling warm. Patient states that she's had 2 syncopal episodes. Patient states all her symptoms started 2 AM this morning. Patient denies chest pain shortness of breath. Patient denies cough. Patient states her throat pain is a 5 out of 10 and is worse when she swallows. Patient states her pain is better with rest and not swallowing. -: Sudden Severity scale (0 -10): 5 Quality: stabbing Consistency: constant - Related Data Previous Rx's Medication Instructions Recorded Last Taken Type Loratadine [Claritin] 10 mg PO DAILY #30 tablet 03/23/14 03/17/17 Rx predniSONE [Deltasone] 40 mg PO QDAY #10 tab 03/23/14 03/17/17 09:00 Rx metroNIDAZOLE [Flagyl] 500 mg PO Q12HR #14 tab 09/23/17 Unknown Rx Amoxicillin/Potassium Clav 1 each PO BID 10 Days #20 tablet 11/06/18 Unknown Rx [Augmentin 875-125 Tablet] methylPREDNISolone [Medrol] 4 mg PO DAILY 6 Days #1 tab.ds.pk 11/06/18 Unknown Rx Allergies Allergy/AdvReac Type Severity Reaction Status Date / Time No Known Allergies Allergy Verified 03/15/17 19:03 ED Review of Systems ROS: Stated complaint: SYNCOPE/FEVER Other details as noted in HPI Constitutional: fever. denies: chills Eyes: denies: eye pain, eye discharge, vision change ENT: throat pain. denies: ear pain Respiratory: denies: cough, shortness of breath, wheezing Cardiovascular: denies: chest pain, palpitations Endocrine: no symptoms reported Gastrointestinal: denies: abdominal pain, nausea, diarrhea Genitourinary: denies: urgency, dysuria, discharge Musculoskeletal: denies: back pain, joint swelling, arthralgia Skin: denies: rash, lesions Neurological: denies: headache, weakness, paresthesias Psychiatric: denies: anxiety, depression Hematological/Lymphatic: denies: easy bleeding, easy bruising ED Past Medical Hx - Past Medical History Previous Medical History?: Yes Hx Congestive Heart Failure: No Hx Diabetes: No Hx Asthma: No Hx COPD: No Additional medical history: chin abnormality/hemangioma - Surgical History Past Surgical History?: Yes Additional Surgical History: port removal - Family History Family history: no significant - Social History Smoking Status: Never Smoker Substance Use Type: Marijuana - Medications Home Medications: Home Medications Medication Instructions Recorded Confirmed Last Taken Type Loratadine [Claritin] 10 mg PO DAILY #30 tablet 03/23/14 03/17/17 Rx predniSONE [Deltasone] 40 mg PO QDAY #10 tab 03/23/14 03/17/17 09:00 Rx metroNIDAZOLE [Flagyl] 500 mg PO Q12HR #14 tab 09/23/17 Unknown Rx Amoxicillin/Potassium Clav 1 each PO BID 10 Days #20 tablet 11/06/18 Unknown Rx [Augmentin 875-125 Tablet] methylPREDNISolone [Medrol] 4 mg PO DAILY 6 Days #1 tab.ds.pk 11/06/18 Unknown Rx ED Physical Exam - General Limitations: No Limitations General appearance: alert, in no apparent distress - Head Head exam: Present: atraumatic, normocephalic - Eye Eye exam: Present: normal appearance, PERRL Pupils: Present: normal accommodation - ENT ENT exam: Present: mucous membranes moist - Expanded ENT Exam Expanded Mouth exam: Present: tongue normal Throat exam: Positive: tonsillar erythema, tonsillomegaly, tonsillar exudate. Negative: R peritonsillar mass, L peritonsillar mass - Neck Neck exam: Present: normal inspection - Respiratory Respiratory exam: Present: normal lung sounds bilaterally. Absent: respiratory distress - Cardiovascular Cardiovascular Exam: Present: regular rate, normal rhythm. Absent: systolic murmur, diastolic murmur, rubs, gallop - GI/Abdominal GI/Abdominal exam: Present: soft, normal bowel sounds - Extremities Exam Extremities exam: Present: normal inspection - Back Exam Back exam: Present: normal inspection - Neurological Exam Neurological exam: Present: alert, oriented X3 - Psychiatric Psychiatric exam: Present: normal affect, normal mood - Skin Skin exam: Present: warm, dry, intact, normal color. Absent: rash ED Course Vital Signs 11/06/18 11/06/18 11/06/18 04:11 04:37 09:01 Temperature 99.5 F 99.1 F 98.1 F Pulse Rate 104 H 100 H 88 Respiratory 18 16 18 Rate Blood Pressure 109/66 Blood Pressure 105/64 99/59 [Right] O2 Sat by Pulse 100 98 100 Oximetry - Reevaluation(s) Reevaluation #1: Discussed all results patient. Patient states she is feeling better. Patient is stable for discharge. Patient given discharge and medication instructions. Patient given follow-up instructions. Patient voiced understanding of all discharge instructions. Patient will be given antibiotics and steroids prior to discharge. 11/06/18 08:18 ED Medical Decision Making - Lab Data Result diagrams: 11/06/18 05:22 11/06/18 05:22 - Radiology Data Radiology results: report reviewed, image reviewed interpreted by me: Negative chest x-ray PROCEDURE: CT HEAD/BRAIN WO CON TECHNIQUE: Routine axial imaging was obtained of the brain without IV contrast. HISTORY: syncope COMPARISONS: 03/15/2017 FINDINGS: The ventricular system is appropriate in size and is symmetric. There is no evidence of acute stroke or hemorrhage. The visualized sinuses are clear. The mastoid air cells are well pneumatized. The calvarium appears intact. IMPRESSION: Within normal limits.. - Medical Decision Making She is a 23-year-old female that presented to the emergency room with sore throat and sick or episode. Patient also complained of fever and feeling warm. Patient found to have tonsillitis. Patient's labs unremarkable except for an elevated white count. Patient will be discharged home with antibiotics and steroids. Patient given antibiotics and steroids and IV fluids in the ER. Patient stable for discharge and patient discharged home. Patient given discharge instructions. Patient will need to follow up with ENT as well as her primary care. - Differential Diagnosis tonsillitis. Pharyngitis. Sore throat. Fever. Syncope. Dehydration. Critical care attestation.: If time is entered above; I have spent that time in minutes in the direct care of this critically ill patient, excluding procedure time. ED Disposition Clinical Impression: Acute bacterial tonsillitis, Sore throat Fever Qualifiers: Fever type: unspecified Qualified Code(s): R50.9 - Fever, unspecified Syncopal episodes Qualifiers: Syncope type: unspecified Qualified Code(s): R55 - Syncope and collapse Disposition: DC-01 TO HOME OR SELFCARE Is pt being admited?: No Does the pt Need Aspirin: No Condition: Stable Instructions: Pharyngitis (ED), Strep Throat (ED), Syncope (ED), Tonsillitis (ED) Additional Instructions: Patient to follow-up with primary care in 2-3 days. Patient to take Tylenol or ibuprofen when necessary for pain. Patient to return to ER if condition worsens. Patient to take meds as directed. Patient to increase water. Patient to rest. Patient to eat a BRAT diet. Patient to continue all meds. Prescriptions: Amoxicillin/Potassium Clav [Augmentin 875-125 Tablet] 1 each PO BID 10 Days #20 tablet methylPREDNISolone [Medrol] 4 mg PO DAILY 6 Days #1 tab.ds.pk Referrals: [facility] MD SERAFIN [Primary Care Provider] - 2-3 Days LEO REILLY MD [Staff Physician] - 2-3 Days Forms: Work/School Release Form(ED) Time of Disposition: 08:18
[2018-11-06] MEDS ORDERED: NACL 0.9% 1000 ML 1,000 ML IV ONE (06:31)
--- NOTE | 2018-11-06 06:51 | XRay Report ---
PROCEDURE: XR CHEST 1V AP TECHNIQUE: A portable upright view the chest was obtained. HISTORY: fever COMPARISONS: 03/16/2017 FINDINGS: The heart size and mediastinum appear normal. The lungs are clear. Pleural fluid is not seen. The bon es and soft tissues appear well-maintained. IMPRESSION: Within normal limits.. This document is electronically signed by Trent Eason MD., Nov 06 2018 06:49:35 AM ET
--- NOTE | 2018-11-06 07:25 | Cat Scan Report ---
PROCEDURE: CT HEAD/BRAIN WO CON TECHNIQUE: Routine axial imaging was obtained of the brain without IV contrast. HISTORY: syncope COMPARISONS: 03/15/2017 FINDINGS: The ventricular system is appropriate in size and is symmetric. There is no evidence of acute stroke or hemorrhage. The visualized sinuses are clear. The mastoid air cells are well pneumatized. The calv arium appears intact. IMPRESSION: Within normal limits.. This document is electronically signed by Trent Eason MD., Nov 06 2018 07:23:51 AM ET
[2018-11-06] MEDS ORDERED: ROCEPHIN/NS 1 GM/50 ML 1 GM/50 ML BAG IV ONE (08:19)
[2018-11-06] MEDS ORDERED: SOLU-Medrol IV ONE (08:19)
[2018-11-06 09:03] VITALS: BP 99/59
== END 2018-11-06 09:03 | disposition home or self-care (01) ==
LOC: ED 04:08
DX: J03.80 Acute tonsillitis due to other specified organisms (principal); B96.89 Other specified bacterial agents as the cause of diseases classified elsewhere
CPT/HCPCS: 36415; 70450; 71045; 80053; 81001; 82962; 84703; 85025; 87116; 87430; 96361; 96365; 96375; 99284; J0696; J2930; J7030